=== PATIENT | female | born 1985 | race African-American/Black ===

== ENCOUNTER 2017-11-01 22:11 | Observation (INO) ==
[2017-11-01] MEDS ORDERED: ASPIRIN 325 MG TABLET PO STA (23:08)
[2017-11-01] MEDS ORDERED: NITROGLYCERIN 2% OINT 1 INCH/GM PACK TOP STA (23:08)
[2017-11-01] MEDS ORDERED: ONDANSETRON 4 MG/2 ML VIAL IV STA (23:08)
[2017-11-01] MEDS ORDERED: MORPHINE 4 MG/1 ML VIAL IV STA (23:08)
[2017-11-01 23:40] LABS: Basophils % 0.1 % (0.0-0.8); Eosinophils # 0.1 10*3/uL (0.0-0.87); Eosinophils % 0.6 % (0.00-10.9); Hematocrit 37.7 VOL% (35.7-47.0); Hemoglobin 12.6 GM/DL (12.0-16.0); Immature Granulocytes % 0.4 %; Immature Granulocytes Absolute 0.04 #; Lymphocytes # 0.7 10*3/uL (1.4-4.0); Lymphocytes % 6.3 % (21.3-54.2); Mean Corpuscular HGB Conc 33.4 GM/DL (32-36); Mean Corpuscular Hemoglobin 33 PG (27-34); Mean Corpuscular Volume 98.4 FL (87-102); Mean Platelet Volume 9.7 FL (9.6-12.0); Monocytes # 0.7 10*3/uL (0.11-0.8); Monocytes % 6.8 % (1.7-12.7); Neutrophils # 8.9 10*3/uL (1.4-7.4); Neutrophils % 85.8 % (38.7-73.9); Platelet Count 252 T/CUMM (130-400); Red Blood Count 3.83 MC/CUMM (3.8-5.5); Red Cell Distribution Width 12.6 % (9.3-17.3); White Blood Count 10.3 T/CUMM (4-12)
[2017-11-01 23:46] LABS: Apearance,Urine CLEAR (Clear); Bilirubin,Urine Negative (Negative); Blood, Urine Large mg/dL (Negative); Glucose,Urine (UA) Negative (Negative); Ketones,Urine Negative (Negative); Nitrite,Urine Negative (Negative); Protein,Urine Negative; RBC,Urine 99 /HPF (0-4); Squamous Epithelial Cell,Urine Occasional /HPF (0-10); Urine Color Yellow (Yellow); Urine Specific Gravity 1.017 (1.001-1.035); Urine Urobilinogen < 2.0 EU/DL (0.2-1.0); WBC,Urine 5 /HPF (0-6)
[2017-11-02 00:02] LABS: Albumin 3.6 G/DL (3.4-5.0); Bilirubin,Total 0.4 MG/DL (0.2-1.0); Calcium 8.5 MG/DL (8.5-10.1); Lactic Acid 1.9 MMOL/L (0.4-2.0); Osmolality,Calculated 271.8 MOS/KG (273-304); Potassium 3.3 MMOL/L (3.5-5.1); Total Protein 7.6 G/DL (6.4-8.3)
[2017-11-02] MEDS ORDERED: POTASSIUM CHLORIDE 20 MEQ TABLET PO STA (00:09)
[2017-11-02] MEDS ORDERED: MORPHINE 4 MG/1 ML VIAL IV PRN (00:15)
[2017-11-02] MEDS ORDERED: ONDANSETRON 4 MG/2 ML VIAL IV PRN (00:15)
[2017-11-02] MEDS ORDERED: KETOROLAC 15 MG/1 ML VIAL IV PRN (00:20)
[2017-11-02] MEDS ORDERED: KETOROLAC 15 MG/1 ML VIAL IV ONE (01:00)
[2017-11-02] MEDS ORDERED: KETOROLAC 30 MG/1 ML VIAL IV ONE (01:00)
[2017-11-02] MEDS ORDERED: KETOROLAC 30 MG/1 ML VIAL ONE (01:06)
[2017-11-02] MEDS: ACETAMINOPHEN 325 MG TABLET PO PRN ×3 (01:40→20:40)
[2017-11-02] MEDS ORDERED: SODIUM CHLORIDE 0.9% 1,000 ML IV SCH (02:00)
[2017-11-02 02:51] LABS: Basophils % 0.2 % (0.0-0.8); Eosinophils % 0.2 % (0.00-10.9); Hematocrit 36.2 VOL% (35.7-47.0); Hemoglobin 12.6 GM/DL (12.0-16.0); Immature Granulocytes % 0.5 %; Immature Granulocytes Absolute 0.05 #; Lymphocytes # 0.8 10*3/uL (1.4-4.0); Lymphocytes % 8.2 % (21.3-54.2); Mean Corpuscular HGB Conc 34.8 GM/DL (32-36); Mean Corpuscular Hemoglobin 33 PG (27-34); Mean Corpuscular Volume 95.8 FL (87-102); Mean Platelet Volume 9.8 FL (9.6-12.0); Monocytes # 0.6 10*3/uL (0.11-0.8); Monocytes % 5.6 % (1.7-12.7); Neutrophils # 8.7 10*3/uL (1.4-7.4); Neutrophils % 85.3 % (38.7-73.9); Platelet Count 256 T/CUMM (130-400); Red Blood Count 3.78 MC/CUMM (3.8-5.5); Red Cell Distribution Width 12.5 % (9.3-17.3); White Blood Count 10.2 T/CUMM (4-12)
[2017-11-02 03:16] LABS: Calcium 8.4 MG/DL (8.5-10.1); Osmolality,Calculated 269.1 MOS/KG (273-304); Potassium 3.4 MMOL/L (3.5-5.1); Risk Ratio 2.66; Thyroid Stimulating Hormone 1.12 uIU/ml (0.358-3.74); VLDL CHOLESTEROL 11.6 MG/DL
[2017-11-02 03:33] LABS: Macrocytosis 2+; Platelet Estimate Normal
[2017-11-02] MEDS: MULTIVITAMIN (CENTRUM) TABLET PO SCH (09:13)
[2017-11-02] MEDS: ENOXAPARIN 40 MG/0.4 ML SYRINGE SUBCUT SCH (09:13)
[2017-11-02] MEDS: ATENOLOL 50 MG TABLET PO SCH (09:13)
[2017-11-02] MEDS: PANTOPRAZOLE 40 MG TABLET PO SCH (09:14)
[2017-11-02] MEDS ORDERED: IBUPROFEN 400 MG TABLET PO PRN (23:33)
[2017-11-03] MEDS: ACETAMINOPHEN 325 MG TABLET PO PRN ×4 (01:12→20:11)
[2017-11-03 06:06] LABS: Basophils % 0.3 % (0.0-0.8); Hematocrit 37.6 VOL% (35.7-47.0); Hemoglobin 12.4 GM/DL (12.0-16.0); Immature Granulocytes % 0.3 %; Immature Granulocytes Absolute 0.03 #; Lymphocytes # 0.9 10*3/uL (1.4-4.0); Lymphocytes % 10.2 % (21.3-54.2); Mean Corpuscular Hemoglobin 33 PG (27-34); Mean Corpuscular Volume 98.7 FL (87-102); Mean Platelet Volume 9.7 FL (9.6-12.0); Monocytes # 0.5 10*3/uL (0.11-0.8); Neutrophils # 7.3 10*3/uL (1.4-7.4); Neutrophils % 83.2 % (38.7-73.9); Platelet Count 209 T/CUMM (130-400); Red Blood Count 3.81 MC/CUMM (3.8-5.5); Red Cell Distribution Width 12.5 % (9.3-17.3); White Blood Count 8.8 T/CUMM (4-12)
[2017-11-03 06:26] LABS: Calcium 8.1 MG/DL (8.5-10.1); Osmolality,Calculated 271.8 MOS/KG (273-304); Potassium 3.4 MMOL/L (3.5-5.1)
[2017-11-03 06:42] LABS: Hypochromasia 1+
[2017-11-03 06:43] LABS: Macrocytosis Slight; Platelet Estimate Normal
[2017-11-03] MEDS: MULTIVITAMIN (CENTRUM) TABLET PO SCH (09:08)
[2017-11-03] MEDS: ATENOLOL 50 MG TABLET PO SCH (09:08)
[2017-11-03] MEDS: PANTOPRAZOLE 40 MG TABLET PO SCH (09:08)
[2017-11-03] MEDS: ENOXAPARIN 40 MG/0.4 ML SYRINGE SUBCUT SCH (09:09)
[2017-11-03] MEDS ORDERED: POTASSIUM CHLORIDE 20 MEQ TABLET PO ONE (10:20)
[2017-11-03] MEDS: metroNIDAZOLE INJ 500 MG in PREMIX 1 EACH IV SCH ×2 (12:50→20:11)
[2017-11-03] MEDS: CIPROFLOXACIN INJ 400 MG in PREMIX 1 EACH IV SCH (14:08)
[2017-11-04] MEDS ORDERED: ALUMINUM/MAGNES/SIMETH MAX STR 30 ML UDCUP PO PRN (00:47)
[2017-11-04] MEDS ORDERED: SODIUM CHLORIDE 0.9% 1,000 ML IV SCH (01:00)
[2017-11-04] MEDS: CIPROFLOXACIN INJ 400 MG in PREMIX 1 EACH IV SCH (01:02)
[2017-11-04] MEDS: metroNIDAZOLE INJ 500 MG in PREMIX 1 EACH IV SCH ×2 (04:57→11:50)
[2017-11-04] MEDS: ACETAMINOPHEN 325 MG TABLET PO PRN (04:58)
[2017-11-04 08:25] LABS: Basophils % 0.2 % (0.0-0.8); Eosinophils % 0.4 % (0.00-10.9); Hemoglobin 11.5 GM/DL (12.0-16.0); Immature Granulocytes % 0.2 %; Immature Granulocytes Absolute 0.01 #; Lymphocytes # 1.1 10*3/uL (1.4-4.0); Mean Corpuscular HGB Conc 33.8 GM/DL (32-36); Mean Corpuscular Hemoglobin 33 PG (27-34); Mean Corpuscular Volume 97.1 FL (87-102); Mean Platelet Volume 9.8 FL (9.6-12.0); Monocytes # 0.4 10*3/uL (0.11-0.8); Monocytes % 9.1 % (1.7-12.7); Neutrophils # 3.3 10*3/uL (1.4-7.4); Neutrophils % 68.1 % (38.7-73.9); Platelet Count 209 T/CUMM (130-400); Red Cell Distribution Width 12.6 % (9.3-17.3); White Blood Count 4.8 T/CUMM (4-12)
[2017-11-04] MEDS: ATENOLOL 50 MG TABLET PO SCH ×2 (08:37→08:39)
[2017-11-04] MEDS: MULTIVITAMIN (CENTRUM) TABLET PO SCH (08:37)
[2017-11-04] MEDS: PANTOPRAZOLE 40 MG TABLET PO SCH (08:38)
[2017-11-04] MEDS: ENOXAPARIN 40 MG/0.4 ML SYRINGE SUBCUT SCH (08:38)
[2017-11-04 08:50] LABS: Atypical Lymphocytes Few; Band Neutrophils 7 % (0-10); Lymphocytes 24 % (20-55); Macrocytosis Slight; Segmented Neutrophils 66 % (50-85); Total Cells Counted 100
[2017-11-04 08:51] LABS: Platelet Estimate Normal
[2017-11-04 09:01] LABS: Calcium 8.3 MG/DL (8.5-10.1); Osmolality,Calculated 271.7 MOS/KG (273-304); Potassium 3.2 MMOL/L (3.5-5.1)
[2017-11-04 09:11] VITALS: BP 110/65
[2017-11-04] MEDS ORDERED: POTASSIUM CHLORIDE 20 MEQ TABLET PO ONE (09:16)
== END 2017-11-04 12:20 | disposition home or self-care (01) ==
LOC: N.EDINP 22:11 → N.ED 22:11 → SUATTDRO 11-02 00:12 → N.5E 11-02 00:45
PROVIDERS: ADMIT Internal Medicine; ATTEND Internal Medicine